=== PATIENT | male | born 1970 | race Caucasian/White ===

== ENCOUNTER 2022-06-21 18:44 | Inpatient (IN) ==
[2022-06-21] MEDS ORDERED: ASPIRIN 81 MG CHEW PO STA (19:25)
--- NOTE | 2022-06-21 19:51 | Emergency Department Note ---
Impression & Plan Chest pain, Elevated troponin I level ED Provider Note Provider: Matthew Martinez MD DATE OF SERVICE: 06/21/2022 CHIEF COMPLAINT: Intermittent chest pain, abnormal blood work HISTORY OF PRESENT ILLNESS: Patient is a 51-year-old gentleman presenting today referred by his outpatient doctors office. Patient states 3 to 4 weeks ago he started to have a little bit of exertional fluttering and discomfort in the anterior upper part of his chest. Get better with rest. Been coming and going. Patient states called his doctor and made outpatient appointment and followed up today with them. Had outpatient blood work and x-ray earlier. Was started on aspirin earlier and told to take metoprolol starting tomorrow. Denies leg swelling or shortness of breath peer denies nausea or vomiting. Called by his doctor's office due to abnormal blood work and sent here today. Patient states occasionally feel like a flutter in his chest. No history of hypertension or diabetes reported. Patient denies chest pain currently. REVIEW OF SYSTEMS: A total of 10 review of systems was obtained and negative except as stated above in the HPI. PAST MEDICAL HISTORY: As noted above MEDICATIONS: She started baby aspirin today FMH: CAD/stents and father SOCIAL HISTORY: Non-smoker PHYSICAL EXAM: GENERAL: alert and oriented in no acute distress on stretcher Head: normocephalic and atraumatic EYES: No injection, discharge or icterus. NECK: Trachea midline. Supple. ENT: Mucous membranes pink and moist. LUNGS: Airway patent. No retractions. Breath sounds clear with good air entry bilaterally. HEART: Regular rate and rhythm. No chest wall tenderness ABDOMEN: Soft and non-tender, without guarding or rebound. SKIN: Acyanotic, warm, dry, without rashes EXTREMITIES: Without swelling, tenderness or deformity NEUROLOGICAL: No focal deficits. No aphasia. No facial droop or slurred speech. Ambulatory. EK bpm normal sinus rhythm. No PVC or PAC noted. Some questionable V1 V2 ST elevation with a QTC of 415. No reciprocal depressions noted with T wave inversion in aVL. EK bpm normal sinus rhythm. No PVC or PAC noted not significantly changed from earlier ECG today. CONTINUOUS CARDIAC MONITORING: was ordered and showed a heart rate of 70s-80s bpm in normal sinus rhythm occasional PVCs Patient's laboratory studies and imaging reviewed. Differential includes Cardiac ischemia, aortic dissection, pulmonary embolism, pneumothorax, pneumonia, pericarditis, myocarditis, esophageal rupture, GERD, cholecystitis, pancreatitis, musculoskeletal, as well as other pathologies. IMPRESSION/MEDICAL DECISION MAKING: Shortness of breath no clinical evidence of hypoxia or leg swelling. Doubt DVT or PE. Doubt this is dissection. Intermittent anginal type chest discomfort with elevated troponin questions evolving unstable angina picture. No chest pain now. Occasionally with some PVCs on telemetry here. Given additional aspirin for full dose today. Repeat troponin was sent. Chest x-ray from earlier this evening without significant abnormalities. Doubt this is infectious. Could possibly be arrhythmia such as SVT or A. fib transiently giving some demand ischemia versus CAD. Doubt STEMI given his lack of symptoms at this point. Discussed with the patient strong recommendation that he stay here for further cardiac evaluation and work-up. Troponin slightly uptrending here. Will defer full anticoagulation at this point. Patient and were in agreement to stay for further cardiac evaluation. Hospitalist contacted. DIAGNOSIS: Chest pain, elevated troponin DISPOSITION: Hospitalist will evaluate Patient was agreeable with this plan. Past Med/Surg History Social History Smoking Status: Never smoker Preferred Language: Maltese Feels Safe at Home: Yes Allergies Allergies Allergy/AdvReac Type Severity Reaction Status Date / Time No Known Allergies Allergy Unverified 06/21/22 20:24 Home Meds Home Medications Medication Instructions Recorded Confirmed aspirin 81 mg tablet,delayed 81 mg PO DAILY 06/21/22 06/21/22 release metoprolol succinate 25 mg 12.5 mg PO DAILY 06/21/22 06/21/22 tablet,extended release 24 hr nitroglycerin 0.4 mg sublingual 0.4 mg sublingual UD PRN Chest Pain 06/21/22 06/21/22 tablet Results & Data (ED) Vital Signs Vital Signs - 24 hr 06/21/22 19:01 06/21/22 19:34 06/21/22 19:35 Temperature 36.8 C Temperature Source Temporal Artery Scan Pulse Rate 83 Pulse Rate [Apical] 79 Pulse Rhythm [Apical] Regular Respiratory Rate 18 18 Respiratory Effort / Characteristics Non-Labored Spontaneous Respiratory Depth Normal Blood Pressure 153/81 H Blood Pressure [Left Arm] 138/88 Blood Pressure Mean 105 Blood Pressure Mean [Left Arm] 104 Pulse Oximetry 98 96 96 Oxygen Delivery Method Room Air Room Air Room Air Sepsis Recent Fever Within 48 Hours No Sepsis New/Unexplained Change in Mental Status N/A Sepsis Action Taken by Nursing No Action Required Laboratory Data Result diagrams: 06/21/22 20:18 06/21/22 20:18 Lab Results 06/21/22 06/21/22 06/21/22 Range/Units 19:38 20:18 20:18 WBC 8.46 (4.8-10.8) K/ul RBC 4.94 (4.63-6.08) M/uL Hgb 14.7 (14.0-18.0) g/dl Hct 43.1 (40.1-51.0) % MCV 87.2 (80.0-100.0) fL MCH 29.8 (25.0-34.0) pg MCHC 34.1 (32.0-36.0) g/dL RDW Std Deviation 41.5 (36.4-46.3) fL RDW Coeff of Mario Alberto 13.1 (11.5-14.5) % Plt Count 263 (130-400) K/uL MPV 9.2 L (9.4-12.4) fL Immature Gran % (Auto) 0.2 % Neut % (Auto) 44.1 % Lymph % (Auto) 42.0 % [place] % (Auto) 10.0 % Eos % (Auto) 3.0 % Baso % (Auto) 0.7 % Neut # (Auto) 3.73 (1.4-6.5) K/uL Lymph # (Auto) 3.55 H (1.2-3.4) K/uL [place] # (Auto) 0.85 H (0.24-0.82) K/uL Eos # (Auto) 0.25 (0-0.50) K/uL Baso # (Auto) 0.06 (0-0.2) K/uL Immature Gran # (Auto) 0.02 (0.00-0.02) K/uL PT 11.0 (9.0-12.0) Seconds INR 1.0 (0.9-1.1) APTT 28.2 (21.0-31.0) Seconds PTT Ratio 1.0 Sodium (136-145) mmol/L Potassium (3.5-5.1) mmol/L Chloride (98-107) mmol/L Carbon Dioxide (21-32) mmol/L Anion Gap (3-11) BUN (6-23) mg/dl Creatinine (0.6-1.4) mg/dl Est Cr Clr Drug Dosing ml/min Est GFR ( Amer) ml/min Est GFR (Non-Af Amer) ml/min BUN/Creatinine Ratio (10-20) Glucose (70-99(Fasting)) mg/dl Calcium (8.5-10.1) mg/dl Total Bilirubin (0.2-1.0) mg/dl AST (13-39) U/L ALT (7-52) U/L Alkaline Phosphatase (34-104) U/L Troponin I High Sens (0-20) pg/ml Total Protein (6.0-8.3) gm/dl Albumin (3.4-5.0) gm/dl Globulin (2.5-4.0) gm/dl Albumin/Globulin Ratio (0.9-2) SARS-CoV-2, RNA, NAAT NEGATIVE (NEGATIVE) 06/21/22 Range/Units 20:18 WBC (4.8-10.8) K/ul RBC (4.63-6.08) M/uL Hgb (14.0-18.0) g/dl Hct (40.1-51.0) % MCV (80.0-100.0) fL MCH (25.0-34.0) pg MCHC (32.0-36.0) g/dL RDW Std Deviation (36.4-46.3) fL RDW Coeff of Mario Alberto (11.5-14.5) % Plt Count (130-400) K/uL MPV (9.4-12.4) fL Immature Gran % (Auto) % Neut % (Auto) % Lymph % (Auto) % [place] % (Auto) % Eos % (Auto) % Baso % (Auto) % Neut # (Auto) (1.4-6.5) K/uL Lymph # (Auto) (1.2-3.4) K/uL [place] # (Auto) (0.24-0.82) K/uL Eos # (Auto) (0-0.50) K/uL Baso # (Auto) (0-0.2) K/uL Immature Gran # (Auto) (0.00-0.02) K/uL PT (9.0-12.0) Seconds INR (0.9-1.1) APTT (21.0-31.0) Seconds PTT Ratio Sodium 137 (136-145) mmol/L Potassium 4.1 (3.5-5.1) mmol/L Chloride 101 (98-107) mmol/L Carbon Dioxide 28 (21-32) mmol/L Anion Gap 8 (3-11) BUN 17 (6-23) mg/dl Creatinine 1.08 (0.6-1.4) mg/dl Est Cr Clr Drug Dosing 71.4 ml/min Est GFR ( Amer) 90.3 ml/min Est GFR (Non-Af Amer) 77.9 ml/min BUN/Creatinine Ratio 15.7 (10-20) Glucose 93 (70-99(Fasting)) mg/dl Calcium 9.5 (8.5-10.1) mg/dl Total Bilirubin 0.4 (0.2-1.0) mg/dl AST 25 (13-39) U/L ALT 26 (7-52) U/L Alkaline Phosphatase 58 (34-104) U/L Troponin I High Sens 176.8 H* (0-20) pg/ml Total Protein 7.3 (6.0-8.3) gm/dl Albumin 4.2 (3.4-5.0) gm/dl Globulin 3.1 (2.5-4.0) gm/dl Albumin/Globulin Ratio 1.4 (0.9-2) SARS-CoV-2, RNA, NAAT (NEGATIVE) Administered Medications Discontinued Medications Aspirin (Aspirin 81 Mg Chew) 243 mg PO NOW STA Stop: 06/21/22 19:26 Last Admin: 06/21/22 19:34 Dose: 243 mg Documented By: KV Discharge Plan Visit Data Chief Complaint: Abnormal Labs/Diagnostic Testing Stated Complaint: ABNORMAL LAB RESULTS ED Provider: Matthew Martinez Discharge Problem: Chest pain, Elevated troponin I level Patient Disposition: Being Evaluated by Hospitalist Forms Stand Alone Forms: My [facility] Prescriptions Prescriptions: No Action nitroglycerin 0.4 mg tablet, sublingual 0.4 mg sublingual UD PRN (Reason: Chest Pain) metoprolol succinate 25 mg tablet extended release 24 hr 12.5 mg PO DAILY Rx Instructions: at pharmacy to start tomorrow aspirin [Aspirin Low-Strength] 81 mg Tablet,Delayed Release (Dr/Ec) 81 mg PO DAILY Referrals Referrals: Marvin Fallon III, MD [Physician] -
[2022-06-21 20:59] LABS: Basophils # (auto) 0.06 K/uL (0-0.2); Basophils % (auto) 0.7 %; Eosinophils # (auto) 0.25 K/uL (0-0.50); Hematocrit (blood only) 43.1 % (40.1-51.0); Hemoglobin 14.7 g/dl (14.0-18.0); Immature Granulocytes # (auto) 0.02 K/uL (0.00-0.02); Immature Granulocytes % (auto) 0.2 %; Lymphocytes # (auto) 3.55 K/uL (1.2-3.4); Mean Corpuscular Hemoglobin 29.8 pg (25.0-34.0); Mean Corpuscular Hgb Conc 34.1 g/dL (32.0-36.0); Mean Corpuscular Volume 87.2 fL (80.0-100.0); Mean Platelet Volume 9.2 fL (9.4-12.4); Monocytes # (auto) 0.85 K/uL (0.24-0.82); Neutrophils # (auto) 3.73 K/uL (1.4-6.5); Neutrophils % (auto) 44.1 %; Platelet Count 263 K/uL (130-400); RDW Coefficient of Variation 13.1 % (11.5-14.5); RDW Standard Deviation 41.5 fL (36.4-46.3); Red Blood Count 4.94 M/uL (4.63-6.08); White Blood Count 8.46 K/ul (4.8-10.8)
[2022-06-21 21:14] LABS: Partial Thromboplastin Time 28.2 Seconds (21.0-31.0)
[2022-06-21 21:17] LABS: Albumin Globulin Ratio 1.4 (0.9-2); Albumin Level 4.2 gm/dl (3.4-5.0); BUN Creatinine Ratio 15.7 (10-20); Bilirubin,Total 0.4 mg/dl (0.2-1.0); Calcium 9.5 mg/dl (8.5-10.1); Creatinine Clr Calc Pharmacy 71.4 ml/min; Est GFR (African American) 90.3 ml/min; Est GFR (Non-African American) 77.9 ml/min; Globulin 3.1 gm/dl (2.5-4.0); Potassium 4.1 mmol/L (3.5-5.1); Total Protein 7.3 gm/dl (6.0-8.3)
[2022-06-21 21:23] LABS: Troponin I High Sensitivity 176.8 pg/ml (0-20)
[2022-06-21] MEDS ORDERED: Heparin IV Adult Wt-Based Standard *NO* Bolus Protocol IV ONE (22:54)
--- NOTE | 2022-06-21 22:55 | History & Physical Report ---
Date of Service June 21, 2022 Assessment & Plan (1) NSTEMI (non-ST elevated myocardial infarction): Plan: Hyperlipidemia on outpatient blood work PCU Aspirin, beta-ivy, statin, IV heparin TTE, Cardiology consult Re: NSTEMI N.p.o. after midnight in anticipation of ischemic work-up DVT prophylaxis. IV heparin Full code Text document was generated using [employer] voice recognition software. It may contain grammatical or spelling errors. Kindly contact undersigned for clarification of any documentation item in question. History of Present Illness Chief Complaint: Chest pain, abnormal blood work Primary Care Provider: Ana Giles MD History obtained from patient and records. No significant medical history. 3 weeks ago, patient experienced upper chest discomfort associated chest fluttering and somewhat worsened on exertion. Relieved by rest. 3 days ago, patient had recurrent symptoms spontaneously resolving. Patient saw new PCP at [facility] today. Abnormalities noted on outpatient EKG. Outpatient Cardiology referral and stress test contemplated. Patient prescribed aspirin, beta-ivy and as needed nitro medication. Outpatient labs requested. Troponin drawn at [facility] noted to be abnormal. Patient instructed by on-call physician to go to the ER for evaluation. Aspirin administered at the ER. Patient currently asymptomatic. Medical History as above Surgical History : Appendectomy Family History : Heart disease, leukemia Personal/Social history : Non-smoker, no EtOH intake, [employer] Allergies Allergy/AdvReac Type Severity Reaction Status Date / Time No Known Allergies Allergy Unverified 06/21/22 20:24 Home Medications Medication Instructions Recorded Confirmed Type aspirin 81 mg tablet,delayed 81 mg PO DAILY 06/21/22 06/21/22 History release metoprolol succinate 25 mg 12.5 mg PO DAILY 06/21/22 06/21/22 History tablet,extended release 24 hr nitroglycerin 0.4 mg sublingual 0.4 mg sublingual UD PRN Chest Pain 06/21/22 06/21/22 History tablet Past Med/Surg History Social History Smoking Status: Never smoker Hx Alcohol Use: No Hx Substance Use: No Preferred Language: British Communication Ability: Effective Welfare Centre Manager Required: No Beliefs That Will Affect Care: None Current Living Situation: Spouse and Family Other Information That Helps Us Care for You: No Feels Safe at Home: Yes Safety Concerns: Feels Safe At This Time Assistive Devices: None Review of Systems Review of Systems: As per HPI, all other systems reviewed and negative Physical Exam Physical Exam: GENERAL: Comfortable, pleasant, slightly anxious, no respiratory distress SKIN: Normal color, warm HEENT: [place] palpebral conjunctivae, no ptosis, moist buccal mucosa NECK : Supple, no tenderness CHEST : CTA, no tenderness HEART : RRR, no obvious murmurs ABDOMEN: Some distention, nontender EXTREMITIES : No LE swelling/tenderness, no other conspicuous deformities noted NEUROLOGIC : Coherent, no facial asymmetry, no other gross focality Results & Data Results & Data ([facility]) Vital Signs (Past 12 Hours) Vital Signs Temp Pulse Pulse Resp BP BP Pulse Ox 06/21/22 19:35 96 06/21/22 19:34 79 18 138/88 96 06/21/22 19:01 36.8 C 83 18 153/81 H 98 O2 Del Method 06/21/22 19:35 Room Air 06/21/22 19:34 Room Air 06/21/22 19:01 Room Air Laboratory Results Laboratory Results WBC 8.46 K/ul (4.8-10.8) 06/21/22 20:18 RBC 4.94 M/uL (4.63-6.08) 06/21/22 20:18 Hgb 14.7 g/dl (14.0-18.0) 06/21/22 20:18 Hct 43.1 % (40.1-51.0) 06/21/22 20:18 MCV 87.2 fL (80.0-100.0) 06/21/22 20:18 MCH 29.8 pg (25.0-34.0) 06/21/22 20:18 MCHC 34.1 g/dL (32.0-36.0) 06/21/22 20:18 RDW Std Deviation 41.5 fL (36.4-46.3) 06/21/22 20:18 RDW Coeff of Mario Alberto 13.1 % (11.5-14.5) 06/21/22 20:18 Plt Count 263 K/uL (130-400) 06/21/22 20:18 MPV 9.2 fL (9.4-12.4) L 06/21/22 20:18 Immature Gran % (Auto) 0.2 % 06/21/22 20:18 Neut % (Auto) 44.1 % 06/21/22 20:18 Lymph % (Auto) 42.0 % 06/21/22 20:18 [place] % (Auto) 10.0 % 06/21/22 20:18 Eos % (Auto) 3.0 % 06/21/22 20:18 Baso % (Auto) 0.7 % 06/21/22 20:18 Neut # (Auto) 3.73 K/uL (1.4-6.5) 06/21/22 20:18 Lymph # (Auto) 3.55 K/uL (1.2-3.4) H 06/21/22 20:18 [place] # (Auto) 0.85 K/uL (0.24-0.82) H 06/21/22 20:18 Eos # (Auto) 0.25 K/uL (0-0.50) 06/21/22 20:18 Baso # (Auto) 0.06 K/uL (0-0.2) 06/21/22 20:18 Immature Gran # (Auto) 0.02 K/uL (0.00-0.02) 06/21/22 20:18 PT 11.0 Seconds (9.0-12.0) 06/21/22 20:18 INR 1.0 (0.9-1.1) 06/21/22 20:18 APTT 28.2 Seconds (21.0-31.0) 06/21/22 20:18 PTT Ratio 1.0 06/21/22 20:18 Sodium 137 mmol/L (136-145) 06/21/22 20:18 Potassium 4.1 mmol/L (3.5-5.1) 06/21/22 20:18 Chloride 101 mmol/L (98-107) 06/21/22 20:18 Carbon Dioxide 28 mmol/L (21-32) 06/21/22 20:18 Anion Gap 8 (3-11) 06/21/22 20:18 BUN 17 mg/dl (6-23) 06/21/22 20:18 Creatinine 1.08 mg/dl (0.6-1.4) 06/21/22 20:18 Est Cr Clr Drug Dosing 71.4 ml/min 06/21/22 20:18 Est GFR ( Amer) 90.3 ml/min 06/21/22 20:18 Est GFR (Non-Af Amer) 77.9 ml/min 06/21/22 20:18 BUN/Creatinine Ratio 15.7 (10-20) 06/21/22 20:18 Glucose 93 mg/dl (70-99(Fasting)) 06/21/22 20:18 Calcium 9.5 mg/dl (8.5-10.1) 06/21/22 20:18 Magnesium 2.2 mg/dl (1.7-2.4) 06/21/22 20:18 Total Bilirubin 0.4 mg/dl (0.2-1.0) 06/21/22 20:18 AST 25 U/L (13-39) 06/21/22 20:18 ALT 26 U/L (7-52) 06/21/22 20:18 Alkaline Phosphatase 58 U/L (34-104) 06/21/22 20:18 Troponin I High Sens 176.8 pg/ml (0-20) H* 06/21/22 20:18 Total Protein 7.3 gm/dl (6.0-8.3) 06/21/22 20:18 Albumin 4.2 gm/dl (3.4-5.0) 06/21/22 20:18 Globulin 3.1 gm/dl (2.5-4.0) 06/21/22 20:18 Albumin/Globulin Ratio 1.4 (0.9-2) 06/21/22 20:18 SARS-CoV-2, RNA, NAAT NEGATIVE (NEGATIVE) 06/21/22 19:[address] chest initial read: No evidence of PE. Lungs are clear. No pleural effusions. No adenopathy. Heart size is normal. Aorta is unremarkable EKG as per my interpretation :Rate 80, LAD, LAFB, septal infarct, T wave inversion lateral leads
[2022-06-21] MEDS ORDERED: PROMETHAZINE HCL 12.5 MG in SODIUM CHLORIDE 0.9% 50 ML IV PRN (22:57)
[2022-06-21] MEDS ORDERED: LORazepam 0.5 MG TAB PO PRN (22:57)
[2022-06-21] MEDS ORDERED: MoRPHine SULFATE 4 MG/ML 1 ML CARP\\VIAL IV PRN (22:57)
[2022-06-21] MEDS ORDERED: traMADol HCL 50 MG TABLET PO PRN (22:57)
[2022-06-21] MEDS ORDERED: SODIUM CHLORIDE 0.9% 1000ML 1,000 ML IV STA (23:03)
[2022-06-21] MEDS ORDERED: Heparin IV Adult Wt-Based Standard *NO* Bolus Protocol IV STA (23:03)
[2022-06-21] MEDS ORDERED: HEPARIN SODIUM/DEXTROSE 25,000 UNITS/500 ML BAG IV SCH (23:15)
[2022-06-22] MEDS ORDERED: OPTIRAY 300 500mL IV ONE (00:12)
[2022-06-22] MEDS ORDERED: ACETAMINOPHEN 325 MG TAB PO PRN (00:27)
[2022-06-22] MEDS ORDERED: NITROGLYCERIN SL 0.4 MG/TAB TAB SL PRN (01:03)
[2022-06-22] MEDS: METOPROLOL SUCC 25MG EXT REL TAB PO SCH (01:58)
[2022-06-22 07:29] LABS: Basophils # (auto) 0.05 K/uL (0-0.2); Basophils % (auto) 0.7 %; Eosinophils # (auto) 0.27 K/uL (0-0.50); Eosinophils % (auto) 3.6 %; Hematocrit (blood only) 45.1 % (40.1-51.0); Hemoglobin 15.2 g/dl (14.0-18.0); Immature Granulocytes # (auto) 0.01 K/uL (0.00-0.02); Immature Granulocytes % (auto) 0.1 %; Lymphocytes # (auto) 2.72 K/uL (1.2-3.4); Lymphocytes % (auto) 36.3 %; Mean Corpuscular Hemoglobin 29.8 pg (25.0-34.0); Mean Corpuscular Hgb Conc 33.7 g/dL (32.0-36.0); Mean Corpuscular Volume 88.4 fL (80.0-100.0); Monocytes # (auto) 0.68 K/uL (0.24-0.82); Monocytes % (auto) 9.1 %; Neutrophils # (auto) 3.77 K/uL (1.4-6.5); Neutrophils % (auto) 50.2 %; Platelet Count 225 K/uL (130-400); RDW Coefficient of Variation 13.1 % (11.5-14.5); RDW Standard Deviation 42.5 fL (36.4-46.3)
[2022-06-22 07:51] LABS: BUN Creatinine Ratio 20.5 (10-20); Calcium 9.3 mg/dl (8.5-10.1); Creatinine Clr Calc Pharmacy 92.9 ml/min; Est GFR (African American) 116.4 ml/min; Est GFR (Non-African American) 100.5 ml/min; Potassium 4.2 mmol/L (3.5-5.1)
--- NOTE | 2022-06-22 07:55 | CT Scan Report ---
CT ANGIOGRAPHY OF THE CHEST, PULMONARY EMBOLUS PROTOCOL CLINICAL HISTORY: Shortness of breath. Chest tightness. Evaluate for pulmonary embolus. COMPARISON STUDY: Chest radiograph performed earlier today. TECHNIQUE: Following IV administration of 115 mL of Optiray, helical axial images of the chest were o btained utilizing the pulmonary embolus protocol. Maximal intensity projections and sagittal and cor onal reformats were viewed on an independent 3D workstation. IV contrast was administered without co mplication. Automated exposure control was utilized for the study. A dose lowering technique was ut ilized adhering to the principles of ALARA. CT DOSE: 353.66 mGy.cm FINDINGS: No pulmonary emboli are identified. There is no thoracic aortic dissection. There is no pe ricardial effusion. There is borderline cardiomegaly. No enlarged thoracic lymph nodes are present. C entral airways are patent. There is no consolidation to suggest pneumonia. No pneumothorax or pleural effusion is present. There is probable geographic hepatic steatosis. IMPRESSION: 1. No pulmonary emboli identified. 2. No acute intrathoracic findings. ACT 112: Negative or not required by law. Electronically signed by: Bc Nicolas M.D. 06/22/2022 7:53 AM
[2022-06-22 07:58] LABS: Partial Thromboplastin Ratio 1.9
[2022-06-22 08:00] LABS: Partial Thromboplastin Time 51.5 Seconds (21.0-31.0); Troponin I High Sensitivity 132.8 pg/ml (0-20)
[2022-06-22] MEDS: ASPIRIN 81 MG ECTAB PO SCH (08:26)
[2022-06-22] MEDS ORDERED: METOPROLOL SUCC 25MG EXT REL TAB PO SCH (09:00)
[2022-06-22] MEDS ORDERED: ATORVASTATIN 20 MG TAB PO SCH (09:00)
--- NOTE | 2022-06-22 09:10 | Pre Anesthesia Assessment ---
Date of Service June 22, 2022 Pre Sedation Assessment Vital Signs Temp Pulse Pulse Resp BP BP Pulse Ox 06/22/22 08:06 36.5 C 74 17 126/73 94 06/22/22 03:07 36.5 C 64 18 116/68 99 06/22/22 00:48 80 06/22/22 00:29 06/22/22 00:16 36.7 C 83 18 162/91 H 98 06/21/22 23:33 75 16 128/76 97 06/21/22 23:00 75 19 97 06/21/22 19:35 96 06/21/22 19:34 79 18 138/88 96 06/21/22 19:01 36.8 C 83 18 153/81 H 98 O2 Del Method 06/22/22 08:06 Room Air 06/22/22 03:07 Room Air 06/22/22 00:48 06/22/22 00:29 Room Air 06/22/22 00:16 Room Air 06/21/22 23:33 Room Air 06/21/22 23:00 Room Air 06/21/22 19:35 Room Air 06/21/22 19:34 Room Air 06/21/22 19:01 Room Air Cardiovascular RRR, no murmur, no edema no JVD no edema Respiratory normal respiratory effort, lungs clear to auscultation Pre-Sedation Airway Assessment Smoking Status: Never smoker Mallampati Class: II ASA: ASA3 NPO Status Date of Last Intake of Fluids: 06/21/22 Procedure Planning Contraindications for Sedation: none Current Medications Reviewed: Yes Notes The planned sedation has been discussed with the patient. Informed Consent was obtained. I have identified the patient, determined the appropriateness of sedation and have assessed the patient immediately prior to the procedure. All medicine(s) and interventions are by my order.
[2022-06-22] MEDS ORDERED: fentaNYL citrate 100 MCG/2 ML VIAL ONE (09:59)
[2022-06-22] MEDS ORDERED: HEPARIN (PORCINE) 1000 UNIT/ML 10 ML (CATH LAB USE ONLY) ONE (09:59)
[2022-06-22] MEDS ORDERED: niCARdipine HCL INJ 2.5 MG/ML 10 ML AMP ONE (09:59)
[2022-06-22] MEDS ORDERED: MIDAZOLAM HCL 1 MG/ML 2ML VIAL ONE ×2 (09:59→10:40)
[2022-06-22] MEDS ORDERED: NITROGLYCERIN/D5W 100MCG/ML 20ML SYR ONE (10:00)
--- NOTE | 2022-06-22 10:10 | Cardiology Consultation ---
Date of Consultation June 22, 2022 Assessment & Plan (1) NSTEMI (non-ST elevated myocardial infarction): (2) Elevated troponin I level: Plan 51-year-old male presents with symptoms consistent with crescendo angina with EKG and echocardiogram and cardiac enzyme reflective of evolving anteroapical infarct, distal LAD disease. Patient appropriately anticoagulated. Lipid reduction and beta-ivy begun Discussed management in detail with patient Recommended coronary angiography procedure and risks explained in detail the patient planned procedure later this morning History of Present Illness Reason for Consultation: Evolving anterior infarct, crescendo angina Requesting Physician: Dr. Giles Attending Physician: Angel Hawkins MD History of Present Illness Patient is a 51-year-old male without prior history of cardiac disease with underlying medical issues of hyperlipidemia, familial history of coronary artery disease who presents with a 3 to 4-week history of exertional chest pressure pain relieved with rest symptoms became more frequent with an extended episode approximately 4 days ago. Was seen by a new primary care physician with EKGs notable for evolving anterior infarct and enzymes consistent with myocardial injury. He was referred asymptomatic to the emergency room. EKGs consistent as described for anteroseptal evolving infarct. Echocardiogram demonstrates hypokinesis of the distal LAD distribution He denies history of fevers chills or unexplained infections. No prior history of myocardial infarction angina or congestive heart failure. No history rheumatic fever scarlet fever or valvular disease. No history of TIA or stroke. No history of diabetes or hypertension. Patient is a non-smoker nondrinker. 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 Notes over the past 4 weeks has been to able to do activities like riding mower but had typical exacerbation of chest pressure and tightness with more physical exertion, running weedeater etc. No bleeding difficulty No planned surgery Allergies Allergy/AdvReac Type Severity Reaction Status Date / Time No Known Allergies Allergy Unverified 06/21/22 20:24 Home Medications Medication Instructions Recorded Confirmed Type aspirin 81 mg tablet,delayed 81 mg PO DAILY 06/21/22 06/21/22 History release metoprolol succinate 25 mg 12.5 mg PO DAILY 06/21/22 06/21/22 History tablet,extended release 24 hr nitroglycerin 0.4 mg sublingual 0.4 mg sublingual UD PRN Chest Pain 06/21/22 06/21/22 History tablet Patient History Social History Smoking Status: Never smoker Hx Alcohol Use: No Hx Substance Use: No Preferred Language: Chinese Communication Ability: Effective Technical Solutions Director Required: No Beliefs That Will Affect Care: None Current Living Situation: Spouse and Family Other Information That Helps Us Care for You: No Feels Safe at Home: Yes Safety Concerns: Feels Safe At This Time Assistive Devices: None Review of Systems Review of Systems: All systems reviewed & are unremarkable except as noted in HPI & below Physical Exam Constitutional: WD/WN, vitals as above Eyes: PERRL, conjunctivae normal, anicteric sclerae ENMT: external ear and nose normal, oropharynx normal Neck: trachea midline, no thyromegaly Respiratory: normal respiratory effort, lungs clear to auscultation Cardiovascular: Rate/Rhythm: regular rate and regular rhythm Heart Sounds: normal S1 and normal S2; no gallop and no murmur Palpation: normal PMI Vessels: normal carotid upstroke and radial pulses present; no JVD and no carotid bruit Extremities: no edema Gastrointestinal (Abdomen): normal bowel sounds, soft, nontender, no hepatosplenomegaly Musculoskeletal: no cyanosis or clubbing, extremities motor strength 5/5 Skin: no rashes, warm and dry Neurologic: PERRL, EOMI, accommodation nl, no face palsy, no dysarthria Psychiatric: A+Ox3, euthymic affect Results & Data ([facility]) Vital Signs (Past 12 Hours) Vital Signs Temp Pulse Pulse Resp BP BP Pulse Ox 06/22/22 09:56 80 20 137/81 100 06/22/22 08:06 36.5 C 74 17 126/73 94 06/22/22 03:07 36.5 C 64 18 116/68 99 06/22/22 00:48 80 06/22/22 00:29 06/22/22 00:16 36.7 C 83 18 162/91 H 98 06/21/22 23:33 75 16 128/76 97 06/21/22 23:00 75 19 97 O2 Del Method 06/22/22 09:56 Room Air 06/22/22 08:06 Room Air 06/22/22 03:07 Room Air 06/22/22 00:48 06/22/22 00:29 Room Air 06/22/22 00:16 Room Air 06/21/22 23:33 Room Air 06/21/22 23:00 Room Air Laboratory Results Laboratory Results - last 24 hr 06/21/22 06/21/22 06/21/22 19:38 20:18 20:18 WBC 8.46 RBC 4.94 Hgb 14.7 Hct 43.1 MCV 87.2 MCH 29.8 MCHC 34.1 RDW Std Deviation 41.5 RDW Coeff of Mario Alberto 13.1 Plt Count 263 MPV 9.2 L Immature Gran % (Auto) 0.2 Neut % (Auto) 44.1 Lymph % (Auto) 42.0 Mingo % (Auto) 10.0 Eos % (Auto) 3.0 Baso % (Auto) 0.7 Neut # (Auto) 3.73 Lymph # (Auto) 3.55 H Mingo # (Auto) 0.85 H Eos # (Auto) 0.25 Baso # (Auto) 0.06 Immature Gran # (Auto) 0.02 PT 11.0 INR 1.0 APTT 28.2 PTT Ratio 1.0 Sodium Potassium Chloride Carbon Dioxide Anion Gap BUN Creatinine Est Cr Clr Drug Dosing Est GFR ( Amer) Est GFR (Non-Af Amer) BUN/Creatinine Ratio Glucose Calcium Magnesium Total Bilirubin AST ALT Alkaline Phosphatase Troponin I High Sens Total Protein Albumin Globulin Albumin/Globulin Ratio SARS-CoV-2, RNA, NAAT NEGATIVE 06/21/22 06/21/22 06/22/22 20:18 20:18 07:12 WBC 7.50 RBC 5.10 Hgb 15.2 Hct 45.1 MCV 88.4 MCH 29.8 MCHC 33.7 RDW Std Deviation 42.5 RDW Coeff of Mario Alberto 13.1 Plt Count 225 MPV 9.0 L Immature Gran % (Auto) 0.1 Neut % (Auto) 50.2 Lymph % (Auto) 36.3 Mingo % (Auto) 9.1 Eos % (Auto) 3.6 Baso % (Auto) 0.7 Neut # (Auto) 3.77 Lymph # (Auto) 2.72 Mingo # (Auto) 0.68 Eos # (Auto) 0.27 Baso # (Auto) 0.05 Immature Gran # (Auto) 0.01 PT INR APTT PTT Ratio Sodium 137 Potassium 4.1 Chloride 101 Carbon Dioxide 28 Anion Gap 8 BUN 17 Creatinine 1.08 Est Cr Clr Drug Dosing 71.4 Est GFR ( Amer) 90.3 Est GFR (Non-Af Amer) 77.9 BUN/Creatinine Ratio 15.7 Glucose 93 Calcium 9.5 Magnesium 2.2 Total Bilirubin 0.4 AST 25 ALT 26 Alkaline Phosphatase 58 Troponin I High Sens 176.8 H* Total Protein 7.3 Albumin 4.2 Globulin 3.1 Albumin/Globulin Ratio 1.4 SARS-CoV-2, RNA, NAAT 06/22/22 06/22/22 07:12 07:12 WBC RBC Hgb Hct MCV MCH MCHC RDW Std Deviation RDW Coeff of Mario Alberto Plt Count MPV Immature Gran % (Auto) Neut % (Auto) Lymph % (Auto) Mingo % (Auto) Eos % (Auto) Baso % (Auto) Neut # (Auto) Lymph # (Auto) Mingo # (Auto) Eos # (Auto) Baso # (Auto) Immature Gran # (Auto) PT INR APTT 51.5 H* PTT Ratio 1.9 Sodium 136 Potassium 4.2 Chloride 103 Carbon Dioxide 28 Anion Gap 5 BUN 17 Creatinine 0.83 Est Cr Clr Drug Dosing 92.9 Est GFR ( Amer) 116.4 Est GFR (Non-Af Amer) 100.5 BUN/Creatinine Ratio 20.5 H Glucose 89 Calcium 9.3 Magnesium Total Bilirubin AST ALT Alkaline Phosphatase Troponin I High Sens 132.8 H* D Total Protein Albumin Globulin Albumin/Globulin Ratio SARS-CoV-2, RNA, NAAT
--- NOTE | 2022-06-22 10:51 | Cardiac Catheterization ---
Cardiac Cath Procedure Brief Procedure Date June 22, 2022 Pre-Procedure Diagnosis Pre-Procedure Diagnosis: Non STEMI and Acute Coronary Syndrome AUC Score AUC Score: 7 Post-Procedure Diagnosis Post-Procedure Diagnosis: Severe CAD Procedure(s) Performed Procedure(s) Performed: Coronary Angiography and Left Heart Cath Appraiser Real Estate Natan Hargrove MD Armor Reconnaissance Vehicle Driver(s) Pavel Jay Estimated Blood Loss Estimated Blood Loss: <15cc Medication(s) Medication(s): Fentanyl (12.5 mcg IV x 2), Heparin (2500 units IV), Lidocaine 1% (Local infiltration access site), Nicardipine (250 mcg intra-arterial after arterial sheath insertion) and Versed (1 mg IV x 2) Preliminary Findings Impression: Left dominant coronary anatomy Severe mid vessel stenosis of the left anterior descending at the end of its proximal third with 99% occlusion as culprit vessel Small nondominant right coronary artery with diffuse proximal and mid vessel disease Mild diffuse irregularities all vessels Normal left end-diastolic pressure Recommendations Recommendations: PCI without planned CABG Specimens Specimens: None Fluids (cc crystalloids) Fluids (cc crystalloids): 60 Anesthesia Start time: 1019, stop time: 1049 Procedural Complication(s) None Disposition Patient referred for PCI same setting
--- NOTE | 2022-06-22 10:56 | Cardiac Catheterization ---
Cardiac Cath Procedure Full Procedure Date June 22, 2022 Pre-Procedure Diagnosis Pre-Procedure Diagnosis: Non STEMI and Acute Coronary Syndrome AUC Score AUC Score: 7 Post-Procedure Diagnosis Post-Procedure Diagnosis: Severe CAD Procedure(s) Performed Procedure(s) Performed: Coronary Angiography and Left Heart Cath Sr. Manager Corporate Communications Natan Hargrove MD Control Panel Assembler(s) Pavel Jay Estimated Blood Loss Estimated Blood Loss: <15cc Medication(s) Medication(s): Fentanyl (12.5 mcg IV x 2), Heparin (2500 units IV), Lidocaine 1% (Local infiltration access site), Nicardipine (250 mcg intra-arterial after arterial sheath insertion) and Versed (1 mg IV x 2) Summary of Findings Impression: Left dominant coronary anatomy Severe mid vessel stenosis of the left anterior descending at the end of its proximal third just prior to a large diagonal branch with 99% occlusion as the culprit vessel Small nondominant right coronary artery with diffuse proximal and mid vessel disease Mild diffuse irregularities all vessels Normal left end-diastolic pressure Procedure: Left heart catheterization coronary angiography Access right radial Catheters: 6 Tu[place]uan long glide radial sheath, 5 Tu[place], 5 [place]uan JR4, straight pigtail Coronary angiography: Left dominant Left main: Normal length and caliber without disease Left anterior descending: Type III vessel with moderate irregularities in its very proximal portion, a small septal branch in its mid proximal third followed by 99% occlusion. The vessel then gives rise to a large diagonal branch. There is mildly reduced flow to the mid and apical left anterior descending. Ramus intermedius: Trivial vessel without disease Left circumflex: Dominant vessel with diffuse moderate irregularities. Gives rise to a large bifurcating obtuse marginal 2 trivial left posterolateral bran ches a moderately large third posterolateral branch and the posterior descending artery Right coronary artery: Nondominant, consisting of a conus branch a moderate size right ventricular branch and a trivial right ventricular branch. There is diffuse disease in its midportion LV angiography: Not performed Hemodynamics Rest Ao:: 115/68/81 Final Ao: 113/62/84 LV: 107/0/9 Recommendations Recommendations: PCI without planned CABG Specimens Specimens: None Radiation Exposure (mGy) 496 Contrast (mls) 56 Fluids (cc crystalloids) Fluids (cc crystalloids): 60 Anesthesia Start time: 1019, stop time: 1049 Procedural Complication(s) None Disposition Patient referred for PCI same setting I attest to the content of the Intraoperative Record and any orders documented therein. Any exceptions are noted below. ACC Data: Crystalizer Cardiac Status Clinical evaluation leading to the procedure 51-year-old male without prior history of cardiac disease who presented with 4 weeks history of stuttering chest exertional chest pain at low levels of exertion predominantly relieved by rest. EKG reflective of evolving anteroseptal infarct with elevated troponin, will distal LAD distribution wall motion abnormality on echocardiogram CAD Presenation: Non STEMI Anginal Classification: CCS III Heart Failure: No Cardiogenic Shock within 24 Hours: No Cardiac Arrest within 24 Hours: No Imaging Studies Past 6 Months: Yes Stress Studies Past 6 Months: No Standard Exercise Test: No Stress Echocardiogram: No Stress Testing w/SPECT MPI: No Cardiac CTA: No STEMI OR Non-STEMI Symptom Onset Date: 05/29/22 Coronary Anatomy Dominant: Left Left Main (% Stenosis): Normal LAD (% Stenosis): Proximal (Moderate irregularities) and Mid (99% at the end of the proximal third after small first septal branch andLarge diagonal) D1 (% Stenosis): Normal Circumflex (% Stenosis): Proximal (Mild irregularity) and Mid (Mild irregularities) OM1 (% Stenosis): Normal (Mild irregularities large bifurcating vessel) L PL1 (% Stenosis): Normal L PDA (% Stenosis): Normal RCA (% Stenosis): Mid (Nondominant vessel with diffuse mid vessel disease) Ramus (% Stenosis): Normal (Trivial vessel) Left Ventricular Angiography EF (%): N/A Diagnostic Physicians Name: Natan Hargrove MD Status: Urgent Closure Device Recommendations: PCI without planned CABG
[2022-06-22] MEDS ORDERED: CLOPIDOGREL BISULFATE 300 MG TAB ONE (11:22)
--- NOTE | 2022-06-22 11:34 | Post Anesthesia Assessment ---
Date of Service June 22, 2022 Post Sedation Assessment Vital Signs Temp Pulse Pulse Resp BP BP Pulse Ox 06/22/22 09:56 80 20 137/81 100 06/22/22 08:06 97.7 F 74 17 126/73 94 06/22/22 03:07 97.7 F 64 18 116/68 99 06/22/22 00:48 80 06/22/22 00:29 06/22/22 00:16 98.1 F 83 18 162/91 H 98 06/21/22 23:33 75 16 128/76 97 06/21/22 23:00 75 19 97 06/21/22 19:35 96 06/21/22 19:34 79 18 138/88 96 06/21/22 19:01 98.2 F 83 18 153/81 H 98 O2 Del Method 06/22/22 09:56 Room Air 06/22/22 08:06 Room Air 06/22/22 03:07 Room Air 06/22/22 00:48 06/22/22 00:29 Room Air 06/22/22 00:16 Room Air 06/21/22 23:33 Room Air 06/21/22 23:00 Room Air 06/21/22 19:35 Room Air 06/21/22 19:34 Room Air 06/21/22 19:01 Room Air Recovery Score Activity: Moves 4 extremities Respiration: Deep Breath/Cough Circulation: +/-20% PreAnes Value Consciousness: Fully Awake Oxygen Saturation: O2 needed for >90% Discharge Sedation Level of Care: Fast Track Phase II Post Sedation Plan On clinical assessment, the patient appears to have tolerated the sedation without complications. Patient is recovering as anticipated. Patient will continue to be monitored by nursing and may be discharged when sedation discharge criteria are met per below protocol. Upon Completions of procedure up to 15 minutes continue every 5 minute vital signs and the P.A.R. score; then discharge to a Phase I or Fast Track to Phase II per the following guidelines: * Discharge Patient to appropriate Phase II area if PAR is 8 or greater or return to pre- procedure baseline. The post - procedure orders will be as directed. * If PAR score is less than 8 or not return to pre-procedure baseline then patient will follow Phase I monitoring till PAR is reached for Phase II. The Phase I may be done in procedure room or may call to secure a Phase I area. * If naloxone or flumazenil are used for reversal, hold in Phase I for continued monitoring from when last reversal dose was given for a minimum of 60 minutes or longer pending the nurse and/or physician discretion of patient condition before discharge to Phase II. Please call the Sedation Physician to re-evaluate and complete post-note for discharge to Phase II area. Do NOT discharge from procedure sedation or Phase 1 until post- sedation evaluation note is complete by procedure /sedation MD Sedation Discharge Instructions to be given to the patient at discharge to home.
--- NOTE | 2022-06-22 11:41 | Cardiac Catheterization ---
[facility] Data: C D Area Supervisor Cardiac Status Clinical evaluation leading to the procedure CAD Presenation: Non STEMI Anginal Classification: CCS III Diagnostic Physicians Name: Jose Carlos Garcia MD Closure Device Recommendations: PCI without planned CABG Cardiac Cath Procedure Full Procedure Date June 22, 2022 Pre-Procedure Diagnosis Pre-Procedure Diagnosis: Non STEMI and Acute Coronary Syndrome AUC Score AUC Score: 7 Post-Procedure Diagnosis Post-Procedure Diagnosis: Severe CAD and Successful PCI Procedure(s) Performed Procedure(s) Performed: Coronary Angiography and Drug Eluting Stent Affirmative Action Officer Jose Carlos Garcia MD Yarn Polishing Machine Operator(s) Narayanibler Estimated Blood Loss Estimated Blood Loss: 20 Medication(s) Medication(s): Clopidogrel, Fentanyl (12.5 mcg IV x 2), Heparin (2500 units IV), Nicardipine (250 mcg intra-arterial after arterial sheath insertion), Nitroglycerin and Versed (1 mg IV x 2) Summary of Findings Indication: ACS Access: 6 Fr right radial artery Catheters: EBU 3.5 guide Findings: For full details of patient's coronary angiography please see cath report dictated by Dr. Hargrove. Briefly, patient found to have severe single-vessel disease with a 98% mid stenosis at bifurcation with large diagonal. Decision to proceed with PCI. -- PCI -- Antithrombotic therapy: Heparin, clopidogrel Procedure: Left main cannulated with EBU 3.5 guide Pre-procedure flow SERA 2 Medical Doctor Md 50 wire passed across lesion into distal LAD vessel Mid LAD lesion predilated with 2.5 compliant balloon Prowater wire placed into diagonal Dilated lesion stented with 3.5 x 15 mm Tylor drug-eluting stent Stent post-dilated with 3.75 noncompliant balloon IC vasodilators administered for spasm Post procedure SERA 3 flow, stent well expanded with minimal residual stenosis and no apparent cardiac complications. Arterial Closure: TR band Summary: 1. Successful PCI of mid LAD with single drug-eluting stent (3.5 x 15 mm Jackson; postdilated with 3.75 NC). Recommendations: To PCU for continued monitoring Loaded with clopidogrel 600 mg in C D Area Supervisor Continue dual-antiplatelet therapy for at least 1 year Continue statin, and ASCVD risk factor modification Consult cardiac Rehab Hemodynamics Rest Ao:: 123/77/97 Final Ao: 84/57/69 LV: 107/9 Recommendations Recommendations: PCI without planned CABG Specimens Specimens: None Radiation Exposure (mGy) 1224 Contrast (mls) 40 (total 96) Anesthesia Start time: 1059, stop time: 1120 Procedural Complication(s) None Disposition PCU I attest to the content of the Intraoperative Record and any orders documented therein. Any exceptions are noted below. [facility] Card Cath Procedure Codes Moderate Sedation Procedure 1: Sedation/Anesthesia: 96440 Mod Sedation by the same physician; Ea [id number] Minutes Stenting Procedure 1: Cardiovascular Stent Procedures: 45903 Perc transcatheter placement of intracoronary stent(s), with ang PG Care Time/CCT Total # of Minutes Spent Total Time Spent with Patient: Total time spent is greater than 50% in coordination of care (as documented) at patient's floor/unit and/or counseling patient:
[2022-06-22] MEDS ORDERED: SODIUM CHLORIDE 0.9% 1000ML 1,000 ML IV SCH (11:45)
--- NOTE | 2022-06-22 14:40 | Hospitalist Progress Note ---
Date of Service June 22, 2022 Assessment & Plan (1) NSTEMI (non-ST elevated myocardial infarction): Plan: NSTEMI S/P Cardiac Cath and PCI:Successful PCI of mid LAD with single drug-eluting stent Needs to be on dual antiplatelet therapy for at least 1 year IV Heparin discontinued Continue aspirin, Plavix, statin, Metoprolol Appreciate cardiology input Needs follow up with Cardiology upon discharge Hyperlipidemia Continue Statin DVT Px: IV heparin DCed SCDs Code Status Full code Admission and Anticipated Discharge Date Admission Date: June 21, 2022 Subjective Patient is seen and examined at bedside Had cardiac catheterization earlier today States feeling well currently Family at bedside Denies any chest pain, shortness of, dizziness, nausea, abdominal pain Offers no other complaints Review of Systems Review of Systems: All systems reviewed & are unremarkable except as noted in Subjective Physical Exam Physical Exam: Physical Exam: Vitals signs as noted above General Appearance:Moderately built and nourished, no apparent distress Head: normocephalic, Atraumatic Eyes: normal inspection, EOMI Neck: supple, Trachea midline Respiratory/Chest: Normal breath sounds, CTA, No accessory muscle use Cardiovascular: S1, S2, No murmur Abdomen/GI:Soft, Non tender, Bowel sounds present Extremities/Musculoskeletal:normal inspection, no edema Neurologic/Psych:AAOX3, grossly no focal neurological deficits Skin: normal color, warm Results & Data Results & Data ([facility]) Vital Signs (Past 12 Hours) Vital Signs Temp Pulse Pulse Resp BP Pulse Ox O2 Del Method 06/22/22 09:00 57 L 06/22/22 11:45 63 16 157/80 H 93 Room Air 06/22/22 11:30 60 16 119/61 93 Room Air 06/22/22 09:56 80 20 137/81 100 Room Air 06/22/22 08:06 36.5 C 74 17 126/73 94 Room Air 06/22/22 03:07 36.5 C 64 18 116/68 99 Room Air Laboratory Results Short CBC 06/21/22 06/22/22 Range/Units 20:18 07:12 WBC 8.46 7.50 (4.8-10.8) K/ul Hgb 14.7 15.2 (14.0-18.0) g/dl Hct 43.1 45.1 (40.1-51.0) % Plt Count 263 225 (130-400) K/uL BMP 06/21/22 06/22/22 20:18 07:12 Sodium 137 136 Potassium 4.1 4.2 Chloride 101 103 Carbon Dioxide 28 28 BUN 17 17 Creatinine 1.08 0.83 Glucose 93 89 Calcium 9.5 9.3 Liver Function 06/21/22 Range/Units 20:18 Total Bilirubin 0.4 (0.2-1.0) mg/dl AST 25 (13-39) U/L ALT 26 (7-52) U/L Alkaline Phosphatase 58 (34-104) U/L Albumin 4.2 (3.4-5.0) gm/dl
--- NOTE | 2022-06-22 15:16 | Electrocardiogram Report ---
Test Reason : Blood Pressure : / mmHG Vent. Rate : 079 BPM Atrial Rate : 079 BPM P-R Int : 172 ms QRS Dur : 084 ms QT Int : 362 ms P-R-T Axes : 037 007 104 degrees QTc Int : 415 ms Normal sinus rhythm Septal infarct , age undetermined T wave abnormality, consider lateral ischemia Abnormal ECG No previous ECGs available Confirmed by Valente Vincent ([id number]) on 06/22/2022 3:16:07 PM Referred By: Ana Giles Confirmed By:Valente Vincent
--- NOTE | 2022-06-22 15:17 | Electrocardiogram Report ---
Test Reason : Blood Pressure : / mmHG Vent. Rate : 075 BPM Atrial Rate : 075 BPM P-R Int : 182 ms QRS Dur : 086 ms QT Int : 376 ms P-R-T Axes : 030 007 101 degrees QTc Int : 419 ms Normal sinus rhythm Septal infarct , age undetermined T wave abnormality, consider lateral ischemia Abnormal ECG When compared with ECG of 21-JUN-2022 19:14, No significant change was found Confirmed by Valente Vincent ([id number]) on 06/22/2022 3:16:41 PM Referred By: Ana Giles Confirmed By:Valente Vincent
--- NOTE | 2022-06-22 15:18 | Electrocardiogram Report ---
Test Reason : Blood Pressure : / mmHG Vent. Rate : 067 BPM Atrial Rate : 067 BPM P-R Int : 186 ms QRS Dur : 086 ms QT Int : 428 ms P-R-T Axes : 043 017 105 degrees QTc Int : 452 ms Poor data quality, interpretation may be adversely affected Normal sinus rhythm Anteroseptal infarct , age undetermined T wave abnormality, consider lateral ischemia T wave abnormality, consider anterior ischemia Abnormal ECG When compared with ECG of 21-JUN-2022 19:42, T wave inversion now evident in Anterior leads Confirmed by Valente Vincent ([id number]) on 06/22/2022 3:17:49 PM Referred By: Ana Giles Confirmed By:Valente Vincent
[2022-06-23 06:27] LABS: Hemoglobin 15.6 g/dl (14.0-18.0); Mean Corpuscular Hemoglobin 29.5 pg (25.0-34.0); Mean Corpuscular Hgb Conc 33.2 g/dL (32.0-36.0); Mean Corpuscular Volume 88.8 fL (80.0-100.0); Mean Platelet Volume 9.1 fL (9.4-12.4); Platelet Count 254 K/uL (130-400); RDW Coefficient of Variation 13.1 % (11.5-14.5); RDW Standard Deviation 42.5 fL (36.4-46.3); Red Blood Count 5.29 M/uL (4.63-6.08); White Blood Count 10.14 K/ul (4.8-10.8)
[2022-06-23 07:07] LABS: BUN Creatinine Ratio 19.8 (10-20); Calcium 9.7 mg/dl (8.5-10.1); Creatinine Clr Calc Pharmacy 80.3 ml/min; Est GFR (African American) 104.2 ml/min; Est GFR (Non-African American) 89.9 ml/min; Magnesium 2.1 mg/dl (1.7-2.4); Potassium 4.5 mmol/L (3.5-5.1)
[2022-06-23] MEDS: ASPIRIN 81 MG ECTAB PO SCH (08:38)
[2022-06-23] MEDS: METOPROLOL SUCC 25MG EXT REL TAB PO SCH (08:38)
[2022-06-23] MEDS ORDERED: ROSUVASTATIN CALCIUM 20 MG TAB PO SCH (09:00)
[2022-06-23] MEDS ORDERED: CLOPIDOGREL BISULFATE 75 MG TAB PO SCH (09:00)
--- NOTE | 2022-06-23 10:39 | Cardiology Progress Note ---
Date of Service June 23, 2022 Assessment & Plan (1) NSTEMI (non-ST elevated myocardial infarction): (2) Elevated troponin I level: Plan 51-year-old male presents with symptoms consistent with crescendo angina with EKG and echocardiogram and cardiac enzyme reflective of evolving anteroapical infarct, distal LAD disease. Patient appropriately anticoagulated. Lipid reduction and beta-ivy begun Discussed management in detail with patient 06/23/2022 Patient underwent coronary angiography demonstrating high-grade 99% early mid left anterior descending critical stenosis as culprit lesion for non-ST segment elevation myocardial infarction. Patient had left dominant anatomy. He underwent successful coronary invention and is doing well 24 hours postop. Echocardiogram did demonstrate mild LV dysfunction and LAD distribution pattern Issues addressed 1. Acute coronary syndrome with non-ST segment elevation myocardial infarction, stuttering infarct with high-grade LAD stenosis successfully treated with drug- eluting stent 2. Hyperlipidemia 3. Mild left ventricular dysfunction Recommendations: Patient stable for discharge today no physical activity x3 days no strenuous activity x2 weeks Discussed medications in detail with patient he should be discharged on guideline directed optimal medical regimen. Patient hospitalized with non-ST segment elevation myocardial infarction stuttering acute coronary syndrome with high-grade proximal/early mid left anterior descending stenosis as culprit. Patient underwent drug-eluting stent implantation on 06/22/2026 uneventfully Patient placed on medical therapies l. All discussed with patient and Plan dual antiplatelet therapy minimum of 6 months Cardiology follow-up 1 to 2 weeks time, office contacted Admission and Anticipated Discharge Date Admission Date: June 21, 2022 Subjective Patient was seen and examined, chart, medications, telemetry reviewed. No arrhythmias overnight. No chest pains or discomfort no shortness of breath no tachypalpitations or dizziness. Right radial access site is healing well. Review of Systems Review of Systems: All systems reviewed & are unremarkable except as noted in Subjective Physical Exam Constitutional: WD/WN, vitals as above Eyes: PERRL, conjunctivae normal, anicteric sclerae ENMT: Mallampati Class: II Neck: trachea midline, no thyromegaly Respiratory: normal respiratory effort, lungs clear to auscultation Cardiovascular: RRR, no murmur, no edema Rate/Rhythm: regular rate and regular rhythm Heart Sounds: normal S1 and normal S2; no gallop and no murmur Palpation: normal PMI Vessels: normal carotid upstroke and radial pulses present (Access site healing well); no JVD and no carotid bruit Extremities: no edema Gastrointestinal (Abdomen): normal bowel sounds, soft, nontender, no hepatosplenomegaly Musculoskeletal: no cyanosis or clubbing, extremities motor strength 5/5 Skin: no rashes, warm and dry Neurologic: PERRL, EOMI, accommodation nl, no face palsy, no dysarthria Psychiatric: A+Ox3, euthymic affect Results & Data ([facility]) Vital Signs (Past 12 Hours) Vital Signs Temp Pulse Pulse Resp BP Pulse Ox O2 Del Method 06/23/22 08:29 67 06/23/22 08:24 57 L 06/23/22 08:05 36.7 C 75 20 119/56 L 97 06/23/22 02:58 36.8 C 66 18 128/66 97 Room Air 06/22/22 23:38 64 06/22/22 23:13 36.8 C 67 18 110/64 99 Room Air Laboratory Results Laboratory Results - last 24 hr 06/22/22 06/22/22 06/23/22 10:51 11:11 05:53 WBC 10.14 RBC 5.29 Hgb 15.6 Hct 47.0 MCV 88.8 MCH 29.5 MCHC 33.2 RDW Std Deviation 42.5 RDW Coeff of Mario Alberto 13.1 Plt Count 254 MPV 9.1 L Activ Coag Time Kaolin 196 H > 1000 H Sodium Potassium Chloride Carbon Dioxide Anion Gap BUN Creatinine Est Cr Clr Drug Dosing Est GFR ( Amer) Est GFR (Non-Af Amer) BUN/Creatinine Ratio Glucose Calcium Magnesium 06/23/22 05:53 WBC RBC Hgb Hct MCV MCH MCHC RDW Std Deviation RDW Coeff of Mario Alberto Plt Count MPV Activ Coag Time Kaolin Sodium 137 Potassium 4.5 Chloride 102 Carbon Dioxide 28 Anion Gap 7 BUN 19 Creatinine 0.96 Est Cr Clr Drug Dosing 80.3 Est GFR ( Amer) 104.2 Est GFR (Non-Af Amer) 89.9 BUN/Creatinine Ratio 19.8 Glucose 89 Calcium 9.7 Magnesium 2.1
[2022-06-23] MEDS ORDERED: lisinopril 2.5 MG TAB PO SCH (11:00)
--- NOTE | 2022-06-23 12:21 | Hospitalist Progress Note ---
Date of Service June 23, 2022 Assessment & Plan (1) NSTEMI (non-ST elevated myocardial infarction): Plan: NSTEMI S/P Cardiac Cath and PCI:Successful PCI of mid LAD with single drug-eluting stent ECHO: Left ventricle is normal in size. Mild concentric LVH. Severe hypokinesis of the mid and distal septum and apex. EF 40 to 45%. Grade 1 diastolic dysfunction. Trace aortic regurgitation. Needs to be on dual antiplatelet therapy for at least 1 year IV Heparin discontinued Continue aspirin, Plavix, statin, Metoprolol Added Lisinopril Appreciate cardiology input Needs follow up with Cardiology upon discharge Hyperlipidemia Continue Statin DVT Px: IV heparin DCed SCDs Code Status Full code Admission and Anticipated Discharge Date Admission Date: June 21, 2022 Subjective Patient is seen and examined at bedside Doing well No new complaints Family at bedside Eager to get discharged Denies any chest pain, shortness of, dizziness, nausea, abdominal pain Review of Systems Review of Systems: All systems reviewed & are unremarkable except as noted in Subjective Physical Exam Physical Exam: Physical Exam: Vitals signs as noted above General Appearance:Moderately built and nourished, no apparent distress Head: normocephalic, Atraumatic Eyes: normal inspection, EOMI Neck: supple, Trachea midline Respiratory/Chest: Normal breath sounds, CTA, No accessory muscle use Cardiovascular: S1, S2, No murmur Abdomen/GI:Soft, Non tender, Bowel sounds present Extremities/Musculoskeletal:normal inspection, no edema Neurologic/Psych:AAOX3, grossly no focal neurological deficits Skin: normal color, warm Results & Data Results & Data ([facility]) Vital Signs (Past 12 Hours) Vital Signs Temp Pulse Pulse Resp BP Pulse Ox O2 Del Method 06/23/22 08:29 67 06/23/22 08:24 57 L 06/23/22 08:05 36.7 C 75 20 119/56 L 97 06/23/22 02:58 36.8 C 66 18 128/66 97 Room Air Laboratory Results Short CBC 06/23/22 Range/Units 05:53 WBC 10.14 (4.8-10.8) K/ul Hgb 15.6 (14.0-18.0) g/dl Hct 47.0 (40.1-51.0) % Plt Count 254 (130-400) K/uL BMP 06/23/22 05:53 Sodium 137 Potassium 4.5 Chloride 102 Carbon Dioxide 28 BUN 19 Creatinine 0.96 Glucose 89 Calcium 9.7
--- NOTE | 2022-06-23 12:29 | Discharge Summary ---
Date of Service June 23, 2022 Admission HPI Per Admitting Provider History obtained from patient and records. No significant medical history. 3 weeks ago, patient experienced upper chest discomfort associated chest fluttering and somewhat worsened on exertion. Relieved by rest. 3 days ago, patient had recurrent symptoms spontaneously resolving. Patient saw new PCP at [facility] today. Abnormalities noted on outpatient EKG. Outpatient Cardiology referral and stress test contemplated. Patient prescribed aspirin, beta-ivy and as needed nitro medication. Outpatient labs requested. Troponin drawn at [facility] noted to be abnormal. Patient instructed by on-call physician to go to the ER for evaluation. Aspirin administered at the ER. Patient currently asymptomatic. Medical History as above Surgical History : Appendectomy Family History : Heart disease, leukemia Personal/Social history : Non-smoker, no EtOH intake, [place] Admission Exam Per Admitting Provider Physical Exam Physical Exam: GENERAL: Comfortable, pleasant, slightly anxious, no respiratory distress SKIN: Normal color, warm HEENT: [place] palpebral conjunctivae, no ptosis, moist buccal mucosa NECK : Supple, no tenderness CHEST : CTA, no tenderness HEART : RRR, no obvious murmurs ABDOMEN: Some distention, nontender EXTREMITIES : No LE swelling/tenderness, no other conspicuous deformities noted NEUROLOGIC : Coherent, no facial asymmetry, no other gross focality Principal Diagnosis Non-ST segment elevation myocardial infarction Hyperlipidemia Discharge Data Allergies Allergy/AdvReac Type Severity Reaction Status Date / Time No Known Allergies Allergy Unverified 06/21/22 20:24 Consultations 06/21/22 21:41 ED Decision to Admit Stat 06/22/22 01:01 Consult Cardiology Routine Procedures Performed Operation Date: 06/22/22 09:00 Actual Procedures p Cineradiography w/Routine Exam - Natan Hargrove MD p Cath, Left with Cors and Vent - Natan Hargrove MD s Drug Eluting Stent SGl Vessel - Abilio Garcia MD Ordered Studies 06/21/22 22:01 CT angio chest PE protocol Urgent 06/22/22 08:49 CL Cath Imgs for PACS use only Stat Hospital Course (1) NSTEMI (non-ST elevated myocardial infarction): NSTEMI S/P Cardiac Cath and PCI:Successful PCI of mid LAD with single drug-eluting stent ECHO: Left ventricle is normal in size. Mild concentric LVH. Severe hypokinesis of the mid and distal septum and apex. EF 40 to 45%. Grade 1 diastolic dysfunction. Trace aortic regurgitation. Needs to be on dual antiplatelet therapy for at least 1 year IV Heparin discontinued Continue aspirin, Plavix, statin, Metoprolol Added Lisinopril Appreciate cardiology input Needs follow up with Cardiology upon discharge Hyperlipidemia Continue Statin DVT Px: IV heparin DCed SCDs Code Status Full code Total Time Total Time Spent Total Time Spent (In Minutes): 45 minutes Discharge Plan Discharge Items Patient Disposition: Home - Self-Care Reason For Visit: CP, TROP ELEV Discharge Diagnosis: Non-ST segment elevation myocardial infarction Hyperlipidemia Activity: Per Instructions section Exercise/Sports: Wait until after follow-up appointment Non-emergency contact: Primary Care Provider and Sales Representative [employer] Call non-emergency contact if: you have any medication questions, your symptoms worsen, your pain is concerning for you and you have a fever Follow-up/Referrals: Ana Giles MD [Primary Care Provider] - (Date & Time 06/28/2022 10:40 AM Provider Ana Giles MD Department General Internal Medicine [facility] ) Diet: Heart Healthy Addtl Attending Provider Instructions: Follow-up with your primary care physician on 06/28/2022 10:40 AM Follow-up with your fitting room checker Dr. Hargrove in 1 to 2 weeks Seek immediate medical attention if your symptoms reoccur or worsen Please take all medications as instructed on discharge list below. Please call if you have any questions or problems. You can reach a [facility] hospitalist on duty at [facility] 24 hours a day by calling [phone] Home Care: * Take your medications exactly as directed. Don't skip doses. * Remember that recovery after a heart attack takes time. Plan to rest for at lease 4-8 weeks while you recover. Then return to normal activity when your doctor says it's okay. * Ask your doctor about joining a heart rehabilitation program. * Tell your doctor if you are feeling depressed. Feelings of sadness are common after a heart attack, but it is important that you speak to someone if you are feeling overwhelmed by these feelings. * If you are having chest pain, call 911 for an ambulance. Do NOT drive yourself to the hospital. * Ask your family members to learn CPR. * Learn to take your own blood pressure and pulse. Keep a record of your results. Ask your doctor when you should seek emergency medical attention. He or she will tell you which blood pressure reading is dangerous. Lifestyle Changes: * Maintain a healthy weight. Get help to lose any extra pounds. * Cut back on salt. * Limit canned, dried, packaged, and fast foods. * Don't add salt to your food. * Season foods with herbs instead of salt when you cook. * Break the smoking habit. Enroll in a stop-smoking program to improve your chances of success. * Limit fatty foods. * Ask your doctor about having your lipid levels checked regularly. * Build up your activity according to your doctor's recommendation. * Ask your doctor when it's okay to resume sexual activity. * Tell your doctor about any erectile dysfunction (ED) medication you are taking. Some ED medications are not safe if you take certain heart medications. * Try to manage stress. Follow Up: It is important for you to keep your follow up appointments with your medical provider. Addtl Load Planner Provider Instructions: ACTIVITY RECOMMENDATIONS: Excess manipulation of the wrist should be avoided for the next 24-48 hours. * No lifting over 2 pounds (approximately a 1/2 gallon of milk) with the utilized arm for 24 hours. * No strenuous activity such as bowling or tennis for 3 days. * Keep the site of the procedure covered with a bandage for 24 hours. *You may shower the day after the procedure. Do not take a tub bath or submerge the puncture site in water for the next 3 days. *Do not operate any motorized equipment for 3 days. SPECIAL CARE INSTRUCTIONS: The site may be slightly bruised and sore following your procedure. Should any of the following occur, contact the Dr. who performed your procedure. 1. Redness/inflammation, swelling, chills, or fever, or colored drainage at procedure site within 3-7 days after your procedure. 2. Coldness, discoloration, ongoing numbness, severe pain, or swelling. Expect mild tingling of hand and tenderness at the puncture site for up to three days. If this persists beyond three days, or other symptoms develop, notify the Dr. who performed your procedure. BLEEDING: If the procedure site on your wrist begins to bleed, do not panic 1. Place 1 or 2 fingers firmly just slightly above the insertion site to stop the bleeding. You may be able to feel your pulse as you hold pressure. 2. Lift your finger after 5 minutes to see if the bleeding has stopped. 3. Once the bleeding has stopped, gently wipe the wrist area clean with a bandage. * If the bleeding from your wrist does not stop after 10 minutes, or if there is a large amount of bleeding or spurting, call 911 (do not drive yourself to the hospital). SKIN IRRITATION: * You may experience some redness and/or swelling in the area where radiation was administered. If any skin irritation occurs, please contact your family physician. FOLLOW UP VISIT: Keep any scheduled doctor appointments. Pending Studies at Discharge: No Stand-Alone Forms: My [facility] [employer], Smoking Cessation Medications and DC Order Prescriptions: New clopidogrel 75 mg Tablet 75 mg PO QAM Qty: 30 1RF lisinopril 2.5 mg Tablet 2.5 mg PO QAM Qty: 30 1RF rosuvastatin [Crestor] 20 mg Tablet 20 mg PO QAM Qty: 30 1RF Continued nitroglycerin 0.4 mg tablet, sublingual 0.4 mg sublingual UD PRN (Reason: Chest Pain) aspirin [Aspirin Low-Strength] 81 mg Tablet,Delayed Release (Dr/Ec) 81 mg PO DAILY Changed metoprolol succinate 25 mg tablet extended release 24 hr 25 mg PO DAILY Qty: 30 1RF Rx Instructions: at pharmacy to start tomorrow Discharge Orders: Discharge Order (Routine); Ordered 06/23/22 Ordered By: Angel Hawkins Admission Data Admit Date/Time: 06/21/22 22:56 Attending Provider: Angel Hawkins Admit Provider: Ross Singh Primary Care Provider: Ana Giles Other Providers: Ross Singh ; Dario Cody ; Cameron Gutiérrez ; Natan Hargrove ; Kenny Ho ; Tra Rodrigues ; Palmer Gutierrez ; Elizabeth Wheeler ; Sarah Marcum ; Stephanie Romano ; Aleksey Spring
== END 2022-06-23 14:33 | disposition home or self-care (01) | DRG 247 ==
LOC: ED 18:44 → 4W 22:56